=== PATIENT | female | born 1935 | race Caucasian/White ===

== ENCOUNTER 2016-04-29 16:37 | Observation (INO) | payer MEDICARE, BC ==
[~2016-04-29] VITALS: Ht 156.2 cm; Wt 83.1 kg
[2016-04-29] MEDS ORDERED: ASPIRIN 81 MG CHEW TAB ONE (17:03)
[2016-04-29] MEDS ORDERED: DILTIAZEM 50 MG/10 ML VIAL IV ONE (17:32)
[2016-04-29] MEDS ORDERED: SODIUM CHLORIDE 0.9% 100 ML IV ONE (19:59)
[2016-04-29] MEDS ORDERED: SODIUM CHLORIDE 0.9% 1,000 ML ONE (19:59)
[2016-04-29] MEDS ORDERED: CEFTRIAXONE 1 GM VIAL ONE (19:59)
[2016-04-29 21:24] VITALS: BP_SYST 152; RESP 16; TEMP 97.2; Ht 156.2 cm; Wt 83.1 kg
[2016-04-29] MEDS: DILTIAZEM CD 120 MG CAP PO SCH (22:17)
[2016-04-29] MEDS: KCL IV SCH (22:19)
[2016-04-29] MEDS: SOD CHLOR IV SCH (22:19)
[2016-04-29 23:30] VITALS: BP_SYST 143; RESP 16; TEMP 98.1
[2016-04-30] MEDS: NITROGLYCERIN 2% OINT 1 INCH PKT TOPICAL SCH ×3 (00:36→11:30)
[2016-04-30 03:18] VITALS: BP_SYST 130; RESP 16; TEMP 98
[2016-04-30] MEDS: KCL IV SCH (06:22)
[2016-04-30] MEDS: SOD CHLOR IV SCH (06:22)
[2016-04-30 07:08] VITALS: BP_SYST 143; RESP 16; TEMP 97.2
[2016-04-30] MEDS: DILTIAZEM CD 120 MG CAP PO SCH (08:31)
[2016-04-30] MEDS ORDERED: CEFTRIAXONE 1 GM in SODIUM CHLORIDE 0.9% 50 ML IV SCH (09:00)
[2016-04-30] MEDS ORDERED: Meclizine HCl 25 MG TAB PO SCH (10:45)
[2016-04-30] MEDS ORDERED: ONDANSETRON 4 MG VIAL IV PUSH PRN (10:45)
[2016-04-30 11:19] VITALS: BP_SYST 152; RESP 18; TEMP 98.2
[2016-04-30] MEDS ORDERED: LEVOTHYROXINE 0.1 MG TAB PO SCH (14:00)
[2016-04-30] MEDS ORDERED: LISINOPRIL 10 MG TAB PO SCH (14:00)
[2016-04-30] MEDS ORDERED: ISOSORBIDE DINITRATE 30 MG PO SCH (14:00)
[2016-04-30 14:48] VITALS: BP_SYST 152; RESP 18; TEMP 98.2
[2016-04-30] MEDS ORDERED: SERTRALINE 100 MG TAB PO SCH (21:00)
[2016-04-30] MEDS ORDERED: ASPIRIN EC 81 MG TAB PO SCH (21:00)
== END 2016-04-30 14:01 | disposition home or self-care (01) ==
LOC: ENRESERV → ENRESERVTM → ENRESERVDT → ER 16:37 → ENPENDDIS 20:07 → EMR 20:07 → 5THW 21:23
PROVIDERS: ADMIT Internal Medicine; ATTEND Internal Medicine
DX: R07.9 Chest pain, unspecified (principal); N39.0 Urinary tract infection, site not specified; R42 Dizziness and giddiness; I48.91 Unspecified atrial fibrillation; Z79.01 Long term (current) use of anticoagulants; Z79.82 Long term (current) use of aspirin; I10 Essential (primary) hypertension; F32.9 Major depressive disorder, single episode, unspecified; E78.00 Pure hypercholesterolemia, unspecified; Z98.84 Bariatric surgery status; K21.9 Gastro-esophageal reflux disease without esophagitis; E03.9 Hypothyroidism, unspecified
CPT/HCPCS: 36415; 71010; 80053; 81001; 82550; 82553; 83735; 83880; 84439; 84443; 84484; 85025; 85610; 85730; 87040; 87077; 87088; 87186; 93005; 96361; 96365